=== PATIENT | male | born 1940 | race Caucasian/White ===

== ENCOUNTER 2017-02-18 11:55 | Emergency (ER) | payer MEDICARE, OTHER ==
[~2017-02-18 11:55] MED LIST: ALBU8.5H8 INH; AMOX1TAB64 PO; BENA1TAB10 PO; EPINEPHRINE SYRINGE 0.1 MG/ML, 10ML ONE; FLUT1BLS INH; LINE600T37 PO; MIRA25TA PO; OXYC5CAP2 PO
== END 2017-02-18 13:18 | disposition expired ==
LOC: EDBD → EDSEX → MERGE 11:55 → ED 12:05
DX: I46.8 Cardiac arrest due to other underlying condition (principal); J44.9 Chronic obstructive pulmonary disease, unspecified; I10 Essential (primary) hypertension; F10.20 Alcohol dependence, uncomplicated; Z87.891 Personal history of nicotine dependence
CPT/HCPCS: 92950; 99291